=== PATIENT | female | born 1960 | race Hispanic/Latino ===

== ENCOUNTER 2017-12-29 20:16 | Emergency (ER) | payer BC ==
[2017-12-29] MEDS ORDERED: Ketorolac Tromethamine 30 MG/ML VIAL ONE (20:48)
[2017-12-29] MEDS ORDERED: Morphine 5 MG/ML SYRINGE ONE (21:18)
--- NOTE | 2017-12-29 21:18 | RAD ---
LUMBAR SPINE THREE VIEW 12/29/17 HISTORY: Pain. COMPARISON: None. FINDINGS: No fracture. No malalignment. Mild vascular calcifications of the aorta. Five nonribbearing lumbar ty pe vertebrae. Mild degenerative disease of the SI joints. IMPRESSION: 1. No acute fracture or malalignment. 2. Mild degenerative disc space height loss L5-S1. POS: [facility]
== END 2017-12-29 21:50 | disposition home or self-care (01) ==
LOC: SCSER 20:16
DX: M54.42 Lumbago with sciatica, left side (principal); E11.9 Type 2 diabetes mellitus without complications; E78.5 Hyperlipidemia, unspecified; I10 Essential (primary) hypertension
CPT/HCPCS: 72100; 96372; J2270; J1885

== ENCOUNTER 2018-07-14 15:29 | Outpatient (CLI) | payer BC | END 2018-07-14 15:30 | disposition home or self-care (01) | LOC: BICMAMMO 15:29 | PROVIDERS: ATTEND Family Medicine | DX: Z12.31 Encounter for screening mammogram for malignant neoplasm of breast (principal) | CPT/HCPCS: 77063; 77067 ==

== ENCOUNTER 2019-04-05 16:00 | Inpatient (IN) | payer BC ==
[2019-04-05 17:18] VITALS: BMI 29.5
[2019-04-19] MEDS ORDERED: cefOXitin 2 GM VIAL ONE (08:44)
[2019-04-19] MEDS ORDERED: Sodium Chloride 0.9% 100 ML ONE (08:44)
[2019-04-19] MEDS ORDERED: Midazolam HCl 2 mg/2 ml Vial ONE (09:09)
[2019-04-19] MEDS ORDERED: Fentanyl 100 MCG/2 ML VIAL ONE ×3 (09:09→13:07)
[2019-04-19] MEDS ORDERED: Ondansetron HCl/PF 4 MG/2 ML Vial IVP PRN (11:04)
[2019-04-19] MEDS ORDERED: Promethazine HCl 25 MG/ML VIAL IM PRN ×3 (11:04→18:01)
[2019-04-19] MEDS ORDERED: Promethazine HCl 25 MG/ML VIAL SLOW IVP PRN (11:04)
[2019-04-19] MEDS ORDERED: Ondansetron PF 4 MG/2 ML Vial IVP PRN ×2 (14:44→18:01)
[2019-04-19] MEDS ORDERED: hydrALAZINE 20 MG/ML VIAL SLOW IVP PRN (14:44)
[2019-04-19] MEDS ORDERED: Fentanyl 100 MCG/2 ML VIAL SLOW IVP PRN ×2 (14:44)
[2019-04-19] MEDS: Sodium Chloride 0.9% 1,000 ML IV SCH ×2 (15:30→17:21)
[2019-04-19] MEDS: Insulin Regular 300 UNITS/3 ML VIAL SC PRN ×2 (17:04→21:20)
[2019-04-19] MEDS ORDERED: Bupivacaine HCl 0.5%/Epinephrine 1:200,000/PF 30 ml Vial ONE (17:28)
[2019-04-19] MEDS: cefOXitin Sodium/Dextrose,Iso 1 GM in Premix Bag 1 BAG IVPB SCH (17:47)
[2019-04-19] MEDS ORDERED: Dexamethasone 20 MG/5 ML VIAL ONE (17:57)
[2019-04-19] MEDS ORDERED: Glycopyrrolate 0.2 MG/ML 5 ML SYRINGE ONE (17:57)
[2019-04-19] MEDS ORDERED: Ondansetron PF 4 MG/2 ML Vial ONE (17:57)
[2019-04-19] MEDS ORDERED: Ketorolac Tromethamine 30 MG/ML VIAL ONE (17:57)
[2019-04-19] MEDS ORDERED: Lidocaine 1% PF 5 ML VIAL ONE (17:57)
[2019-04-19] MEDS ORDERED: PROPOFOL 200 MG/20 ML VIAL ONE (17:57)
[2019-04-19] MEDS ORDERED: Rocuronium Bromide 10 MG/ML (10ML VIAL) ONE (17:57)
[2019-04-19] MEDS ORDERED: Acetaminophen 1,000 MG in Premix Bag 1 BAG IVPB SCH (18:00)
[2019-04-19] MEDS ORDERED: diphenhydrAMINE 50 MG/ML VIAL IVP PRN (18:01)
[2019-04-19] MEDS ORDERED: diphenhydrAMINE 50 MG/ML VIAL IM PRN (18:01)
[2019-04-19] MEDS ORDERED: diphenhydrAMINE 25 MG CAP PO PRN (18:01)
[2019-04-19] MEDS ORDERED: fentaNYL Citrate/PF 2,000 MCG in Sodium Chloride 0.9% 60 ML IV PRN (18:01)
[2019-04-19] MEDS ORDERED: Zolpidem Tartrate 5 MG TAB PO PRN (18:01)
[2019-04-19] MEDS ORDERED: Naloxone HCl 0.4 mg/ml Vial IV PRN (18:01)
[2019-04-19] MEDS ORDERED: Communication Order-Pharmacy FS SCH (18:15)
[2019-04-19] MEDS: Famotidine 20 MG TAB PO SCH (21:19)
[2019-04-19] MEDS: Enoxaparin Sodium 40 MG/0.4 ML SYRINGE SC SCH (21:19)
[2019-04-19] MEDS: Famotidine/PF 20 mg/2ml Vial SLOW IVP SCH (21:27)
[2019-04-19] MEDS: Acetaminophen 1,000 MG in Premix Bag 1 BAG IVPB SCH (21:32)
[2019-04-20] MEDS: cefOXitin Sodium/Dextrose,Iso 1 GM in Premix Bag 1 BAG IVPB SCH (01:32)
[2019-04-20] MEDS: Sodium Chloride 0.9% 1,000 ML IV SCH (02:44)
[2019-04-20] MEDS: Acetaminophen 1,000 MG in Premix Bag 1 BAG IVPB SCH ×2 (03:35→09:01)
[2019-04-20 06:30] LABS: #Lymphocytes 2.3 thou/uL (1.20-3.40); #Monocytes 0.9 thou/uL (0.11-0.59); #Neutrophils 10.2 thou/uL (1.40-6.50); %Basophils 0.2 % (0.0-1.0); %Monocytes 6.7 % (0.0-10.0); %Neutrophils 76.1 % (42.0-75.0); Hemoglobin 8.6 g/dL (12.0-16.0); Mean Corpuscular HGB CONC 33.2 g/dL (32.0-36.0); Mean Corpuscular Hemoglobin 29.7 pg (27.0-31.0); Mean Corpuscular Volume 89.5 fL (78.0-98.0); Mean Platelet Volume 7.5 fL (7.4-10.4); Platelet Count 204 thou/uL (130-400); RBC Distribution Width 11.8 % (11.5-14.5); Red Blood Cell (RBC) Count 2.89 mill/uL (4.20-5.40); White Blood Cell (WBC) Count 13.4 thou/uL (4.8-10.8)
[2019-04-20] MEDS: Insulin Regular 300 UNITS/3 ML VIAL SC PRN ×3 (06:42→16:24)
[2019-04-20 06:53] LABS: Anion Gap 10 mmol/L (10-20); BUN (Urea Nitrogen) 14 mg/dL (9.8-20.1); Calc. Creatinine Clearance 88 mL/min (70-130); Calcium 7.1 mg/dL (7.8-10.44); Carbon Dioxide 20 mmol/L (23-31); Chloride 105 mmol/L (98-107); Estimated GFR-MDRD 85; Glucose 166 mg/dL (80-115); Potassium 4.1 mmol/L (3.5-5.1); Sodium 131 mmol/L (136-145)
[2019-04-20] MEDS: Famotidine 20 MG TAB PO SCH ×2 (09:01→20:49)
[2019-04-20] MEDS: Famotidine/PF 20 mg/2ml Vial SLOW IVP SCH ×2 (09:02→20:51)
[2019-04-20] MEDS ORDERED: Fentanyl 100 MCG/2 ML VIAL SLOW IVP PRN (11:25)
[2019-04-20] MEDS ORDERED: Sodium Chloride 0.9% 1,000 ML IV SCH (11:26)
--- NOTE | 2019-04-20 11:28 | PDOC.GSPN ---
Surgery Progress Note: Subj - Subjective Patient reports: pain well controlled (No nausea) Surgery Progress Note: Obj - Vital signs Vital signs: Vital Signs - Most Recent Temp Pulse Resp BP Pulse Ox 98.3 F 92 16 92/60 94 L 04/20/19 10:58 04/20/19 10:58 04/20/19 10:58 04/20/19 10:58 04/20/19 10:58 - Physical Exam General: no distress Cardiovascular: regular rate and rhythm Respiratory: clear to auscultation Abdomen: soft, appropriately tender Wound: healing well Surgery Progress Note: Results - Labs Result Diagrams: 04/20/19 06:00 04/20/19 06:00 Lab results: Laboratory Results - last 24 hr 04/20/19 04/20/19 04/20/19 05:41 06:00 06:00 WBC 13.4 H RBC 2.89 L Hgb 8.6 L Hct 25.9 L MCV 89.5 MCH 29.7 MCHC 33.2 RDW 11.8 Plt Count 204 MPV 7.5 Neutrophils % 76.1 H Lymphocytes % 17.0 L Monocytes % 6.7 Eosinophils % 0.0 Basophils % 0.2 Neutrophils # 10.2 H Lymphocytes # 2.3 Monocytes # 0.9 H Eosinophils # 0.0 Basophils # 0.0 Sodium 131 L Potassium 4.1 Chloride 105 Carbon Dioxide 20 L Anion Gap 10 BUN 14 Creatinine 0.70 Estimated GFR (MDRD) 85 Glucose 166 H POC Glucose 184 H Calcium 7.1 L Surgery Progress Note: A/P - Problem (1) Colonic mass Current Visit: Yes Code(s): K63.89 - OTHER SPECIFIED DISEASES OF INTESTINE Status: Acute - Plan Plan: POD 1 right colectomy -encouraged ambulation. -Full liquids
[2019-04-20] MEDS: HYDROcodone/Acetaminophen 7.5/325 mg Tablet PO PRN ×2 (12:46→18:33)
[2019-04-20] MEDS: Enoxaparin Sodium 40 MG/0.4 ML SYRINGE SC SCH (20:49)
[2019-04-21] MEDS: HYDROcodone/Acetaminophen 7.5/325 mg Tablet PO PRN ×3 (00:38→12:44)
[2019-04-21] MEDS ORDERED: Sodium Chloride 0.9% 1,000 ML IV SCH (02:15)
[2019-04-21 03:17] LABS: Hemoglobin 7.7 g/dL (12.0-16.0); Platelet Count 183 thou/uL (130-400)
[2019-04-21 07:08] LABS: #Lymphocytes 3.6 thou/uL (1.20-3.40); #Monocytes 0.7 thou/uL (0.11-0.59); %Basophils 0.3 % (0.0-1.0); %Eosinophils 0.2 % (0.0-10.0); %Lymphocytes 26.8 % (21.0-51.0); %Monocytes 5.2 % (0.0-10.0); %Neutrophils 67.5 % (42.0-75.0); Hemoglobin 7.8 g/dL (12.0-16.0); Mean Corpuscular HGB CONC 33.1 g/dL (32.0-36.0); Mean Corpuscular Hemoglobin 29.7 pg (27.0-31.0); Mean Corpuscular Volume 89.6 fL (78.0-98.0); Mean Platelet Volume 7.6 fL (7.4-10.4); Platelet Count 189 thou/uL (130-400); RBC Distribution Width 12.1 % (11.5-14.5); Red Blood Cell (RBC) Count 2.62 mill/uL (4.20-5.40); White Blood Cell (WBC) Count 13.4 thou/uL (4.8-10.8)
--- NOTE | 2019-04-21 07:16 | PDOC.GSPN ---
Surgery Progress Note: Subj - Subjective Patient reports: positive flatus, still having pain Narrative: s/p R masoud-colectomy yesterday for colon mass. Had GEAR SHAPER post-op, which was discontinued yesterday. Reports doing well pain-mac yesterday, but woke up this am approx 0600 with 10/10 pain. Just received pain meds from the nurse. Reports bruising to L flank & states L flank area feels hot. Surgery Progress Note: Obj - Vital signs Vital signs: Vital Signs - Most Recent Temp Pulse Resp BP Pulse Ox 98.6 F 114 H 18 116/67 96 04/21/19 03:36 04/21/19 03:36 04/21/19 03:36 04/21/19 03:36 04/21/19 03:36 - Physical Exam General: well developed, well nourished, obese, other (Appears uncomfortable.) Cardiovascular: other (Mildly tachycardic, but regular rhythm. No m/r/g.) Respiratory: clear to auscultation, normal expansion, normal respiratory effort Abdomen: soft, appropriately tender, guarding, other (28x9 cm area of purple ecchymosis noted to L flank/abdomen. L flank area warmer to touch vs R flank.) Wound: healing well Surgery Progress Note: Results - Labs Result Diagrams: 04/21/19 06:42 04/20/19 06:00 Lab results: Laboratory Results - last 24 hr 04/20/19 04/21/19 04/21/19 22:40 02:53 02:53 WBC RBC Hgb 7.7 L Hct 23.3 L MCV MCH MCHC RDW Plt Count 183 MPV Neutrophils % Lymphocytes % Monocytes % Eosinophils % Basophils % Neutrophils # Lymphocytes # Monocytes # Eosinophils # Basophils # POC Glucose 153 H Blood Type O POSITIVE Antibody Screen NEGATIVE Crossmatch See Detail 04/21/19 04/21/19 04/21/19 03:52 06:42 07:00 WBC 13.4 H RBC 2.62 L Hgb 7.8 L Hct 23.5 L MCV 89.6 MCH 29.7 MCHC 33.1 RDW 12.1 Plt Count 189 MPV 7.6 Neutrophils % 67.5 Lymphocytes % 26.8 Monocytes % 5.2 Eosinophils % 0.2 Basophils % 0.3 Neutrophils # 9.0 H Lymphocytes # 3.6 H Monocytes # 0.7 H Eosinophils # 0.0 Basophils # 0.0 POC Glucose 142 H Blood Type O POSITIVE Antibody Screen Crossmatch Surgery Progress Note: A/P - Problem (1) H/O right hemicolectomy Current Visit: Yes Code(s): Z90.49 - ACQUIRED ABSENCE OF OTHER SPECIFIED PARTS OF DIGESTIVE TRACT Status: Acute - Plan Plan: s/p R hemicolectomy. Current pain 05/26, but just received pain medications. Will continue current pain medication regimen & reassess later today. Hgb decreased 0.8 points over past 24 hrs, but has remained stable since approx 0300 this am. Will continue to monitor. Addendum - Physician - Physician Attestation Date/Time: 04/21/19 0847 I personally performed or re-performed the physical examination and medical decision making. I have verified all student documentation or findings, including history, physical exam and/or medical decision making. Pain more controlled now. She is passing gas and feels better. Denies dizzyness with walking. Recheck Hgb at 3pm. Probably DC home if stable
[2019-04-21] MEDS: Famotidine/PF 20 mg/2ml Vial SLOW IVP SCH (08:49)
[2019-04-21] MEDS: Famotidine 20 MG TAB PO SCH (08:50)
--- NOTE | 2019-04-21 13:06 | OP ---
DATE OF PROCEDURE: 04/19/2019 PREOPERATIVE DIAGNOSIS: Right colon mass with high-grade dysplasia. POSTOPERATIVE DIAGNOSIS: Right colon mass with high-grade dysplasia. PROCEDURE PERFORMED: Laparoscopic hand-assist right colectomy with isoperistaltic anastomosis. ANESTHESIA: General. ESTIMATED BLOOD LOSS: 100 mL. COMPLICATIONS: None. FINDINGS: The specimen was opened on the back table to reveal the polyp to be in the specimen. TECHNIQUE: The patient underwent preop placement of TAP blocks, was taken to the operating room, laid supine on operating room table. After general anesthetic was obtained, a Panchal was placed. The abdomen was shaved, prepped, and draped in a sterile fashion. Left subcostal 5 mm Optiview trocar was placed in the usual fashion and high-flow pneumoperitoneum was obtained. A suprapubic 5 mm port and a left abdominal 5 mm port were all placed under direct visualization. The tattooed segment can be seen at hepatic flexure. A 5 mm incision was made around and above the umbilicus and the hand-assist port was placed. The colon was mobilized along the white line of Toldt using cautery. The right ureter was found and excluded from the dissection. Hepatic flexure was mobilized using cautery and the laparoscopic LigaSure. The base of the ileocolic artery was skeletonized. The greater omentum was taken off the transverse colon past the level of the tattoo. The hand-assist top was removed allowing the right colon, transverse colon brought up under no tension. Jennifer clamp and silk ties used to take the ileocolic blood vessel near its base. The proximal transverse colon vessels were taken in the same way. The small bowel was able to brought up against the transverse colon in isoperistaltic fashion under no tension. Enterotomy was made on the end of the small bowel and more distal on the colon. A ggvt-dh-denl anastomosis was performed using a stapling device. The common enterotomy was closed using a running 2-0 Vicryl in two layers. Crotch stitch was placed using silk suture. The mesenteric defect was closed using silk suture. There was no ongoing bleeding in the abdomen. The upper abdomen was irrigated using sterile solution. All instrument counts, needle counts and lap counts were correct. All ports were removed. The midline fascia was closed using #1 PDS from the top and the bottom and tied in the middle. Subcutaneous tissues were irrigated and closed using 3-0 Vicryl, 4-0 Monocryl, and Dermabond. The patient was sent to Recovery in stable condition. All instrument counts, needle counts, and lap counts were correct. Job ID: [id number]
[2019-04-21 15:05] VITALS: BP 111/73; TEMP 98.2
[2019-04-21 15:39] LABS: Hemoglobin 7.4 g/dL (12.0-16.0)
--- NOTE | 2019-04-22 05:52 | DIS ---
DATE OF ADMISSION: 04/19/2019 DATE OF DISCHARGE: 04/21/2019 ADMISSION DIAGNOSIS: Colon mass. DISCHARGE DIAGNOSIS: Colon mass. PROCEDURE PERFORMED: Laparoscopic hand assisted right colectomy by Cezar without complication. CONDITION ON DISCHARGE: Improved. STAFF: Bao Robb MD HOSPITAL COURSE: The patient's postop course was complicated by trocar site hematoma on the left. She did have a drop of her hemoglobin into the mid 7s. She had mild tachycardia associated with this, but no dizziness. She was up and ambulating and had normal vital signs. On the afternoon of 04/21/2019, she is tolerating full liquids without difficulty. She is passing gas. She is being discharged home. Fabiola sent to [facility] in [place]. Job ID: [id number]
--- NOTE | 2019-04-23 02:12 | PQF ---
[employer] Crystal Reports BRENNA Dimas JUVENCIO RODRIGUEZ MD [id number] [facility] A- [id number] CLINICAL DOCUMENTATION CLARIFICATION FORM: POST DISCHARGE Addendum to original discharge summary date: ____ Late entry note date: __ DATE: 04/23/2019 ATTN: JUVENCIO RODRIGUEZ MD Please exercise your independent, professional judgment in responding to the clarification form. Clinical indicators are provided on the bottom of this form for your review Please check appropriate box(s): [ X] Hyponatremia [ ] Abnormal lab findings [ ] Other diagnosis [ ] Unable to determine In addition, please specify: Present on Admission (POA): [ X ] Yes [ ] No [ ] Unable to determine CLINICAL INDICATORS - SIGNS / SYMPTOMS / LABS -Sodium :131L- Laboratory report, 04/20 -Mild tachycardia-DS, 04/21, JUVENCIO RODRIGUEZ MD RISK FACTORS -Colon mass- DS, 04/21, JUVENCIO RODRIGUEZ MD -Laparoscopic hand assisted right colectomy-DS, 04/21, JUVENCIO RODRIGUEZ MD TREATMENTS: -Sodium chloride.IV-MAR, 04/21 (This form is maintained as a part of the permanent medical record) 2014 [employer]. All Rights Reserved Rachelle Abel [not provided] [not provided] MTDD
== END 2019-04-21 18:10 | disposition home or self-care (01) | DRG 330 ==
LOC: SURG A 04-19 08:03
PROVIDERS: ADMIT Surgery; ATTEND Surgery
PROC: 0DTF0ZZ Resection of Right Large Intestine, Open Approach (ICD-10-PCS; principal; 2019-04-19)
PROC: 0DJU4ZZ Inspection of Omentum, Percutaneous Endoscopic Approach (ICD-10-PCS; 2019-04-19)
DX: K63.5 Polyp of colon (principal); K91.870 Postprocedural hematoma of a digestive system organ or structure following a digestive system procedure; E87.1 Hypo-osmolality and hyponatremia; K63.9 Disease of intestine, unspecified; R00.0 Tachycardia, unspecified; E78.5 Hyperlipidemia, unspecified; I10 Essential (primary) hypertension; K59.00 Constipation, unspecified; E11.319 Type 2 diabetes mellitus with unspecified diabetic retinopathy without macular edema; Y83.9 Surgical procedure, unspecified as the cause of abnormal reaction of the patient, or of later complication, without mention of misadventure at the time of the procedure; Y73.3 Surgical instruments, materials and gastroenterology and urology devices (including sutures) associated with adverse incidents; Z79.4 Long term (current) use of insulin; Z90.710 Acquired absence of both cervix and uterus
CPT/HCPCS: 36415; 36416; 80048; 85014; 85018; 85025; 85049; 86850; 86900; 86901; 88307; J0131; J0670; J0694; J1100; J1650; J1815; J1885; J2001; J2250; J2405; J2704; J3010; J3490

== ENCOUNTER 2019-04-05 16:38 | Outpatient (CLI) | payer BC ==
[2019-04-05 17:21] LABS: #Basophils 0.1 thou/uL (0.0-0.2); #Eosinphils 0.3 thou/uL (0.0-0.7); #Lymphocytes 3.3 thou/uL (1.20-3.40); #Monocytes 0.5 thou/uL (0.11-0.59); #Neutrophils 5.5 thou/uL (1.40-6.50); %Basophils 1.1 % (0.0-1.0); %Eosinophils 3.6 % (0.0-10.0); %Monocytes 4.7 % (0.0-10.0); %Neutrophils 56.6 % (42.0-75.0); Hemoglobin 14.3 g/dL (12.0-16.0); Mean Corpuscular HGB CONC 34.2 g/dL (32.0-36.0); Mean Corpuscular Hemoglobin 29.9 pg (27.0-31.0); Mean Corpuscular Volume 87.4 fL (78.0-98.0); Mean Platelet Volume 7.5 fL (7.4-10.4); Platelet Count 259 thou/uL (130-400); RBC Distribution Width 11.8 % (11.5-14.5); Red Blood Cell (RBC) Count 4.79 mill/uL (4.20-5.40); White Blood Cell (WBC) Count 9.7 thou/uL (4.8-10.8)
[2019-04-05 17:45] LABS: Anion Gap 15 mmol/L (10-20); BUN (Urea Nitrogen) 15 mg/dL (9.8-20.1); Calc. Creatinine Clearance 0 mL/min (70-130); Calcium 9.8 mg/dL (7.8-10.44); Carbon Dioxide 25 mmol/L (23-31); Chloride 101 mmol/L (98-107); Estimated GFR-MDRD 81; Glucose 176 mg/dL (80-115); Hemoglobin A1c 9.5 % (4.0-6.0); Potassium 3.6 mmol/L (3.5-5.1); Sodium 137 mmol/L (136-145)
== END 2019-04-05 16:39 | disposition home or self-care (01) ==
LOC: LABBT 16:38
PROVIDERS: ATTEND Surgery
DX: Z01.818 Encounter for other preprocedural examination (principal); K63.5 Polyp of colon
CPT/HCPCS: 80048; 83036; 85025; 93005; 93010

== ENCOUNTER 2019-08-05 11:05 | Outpatient (CLI) | payer BC ==
--- NOTE | 2019-08-05 13:40 | MMO ---
Bilateral MAMMO Bilat Screen [facility]. CLINICAL HISTORY: Patient is 59 years old and is seen for screening. The patient has no family history of breast cancer. The patient has no personal history of cancer. VIEWS: The views performed were: bilateral craniocaudal with tomosynthesis and bilateral mediolateral oblique with tomosynthesis. FILMS COMPARED: The present examination has been compared to prior imaging studies performed at [facility] on 03/08/2014, 02/19/2017 and 07/14/2018. This study has been interpreted with the assistance of computer-aided detection. MAMMOGRAM FINDINGS: There are scattered fibroglandular densities. Finding 1: There are stable benign appearing calcifications seen in both breasts. Finding 2: There is a stable focal asymmetry seen in the upper region of the left breast. There are no suspicious masses, suspicious calcifications, or new areas of architectural distortion. IMPRESSION: THERE IS NO MAMMOGRAPHIC EVIDENCE OF MALIGNANCY. A ROUTINE FOLLOW-UP MAMMOGRAM IN 1 YEAR IS RECOMMENDED. THE RESULTS OF THIS EXAM WERE SENT TO THE PATIENT. ACR BI-RADS Category 2 - Benign finding MAMMOGRAPHY NOTE: 1. A negative mammogram report should not delay a biopsy if a dominant of clinically suspicious mass is present. 2. Approximately 10% to 15% of breast cancers are not detected by mammography. 3. Adenosis and dense breasts may obscure an underlying neoplasm. Reported by: BK LOPEZ MD Electonically Signed: [id number]
== END 2019-08-05 11:06 | disposition home or self-care (01) ==
LOC: BICMAMMO 11:05
PROVIDERS: ATTEND Family Medicine
DX: Z12.31 Encounter for screening mammogram for malignant neoplasm of breast (principal)
CPT/HCPCS: 77063; 77067

== ENCOUNTER 2021-01-22 13:36 | Outpatient (CLI) | payer BC | END 2021-01-22 13:37 | disposition home or self-care (01) | LOC: BICMAMMO 13:36 | PROVIDERS: ATTEND Family Medicine | DX: Z12.31 Encounter for screening mammogram for malignant neoplasm of breast (principal); Z13.820 Encounter for screening for osteoporosis; Z78.0 Asymptomatic menopausal state; M85.89 Other specified disorders of bone density and structure, multiple sites | CPT/HCPCS: 77063; 77067; 77080 ==

== ENCOUNTER 2022-01-28 09:01 | Outpatient (CLI) | payer BC | END 2022-01-28 09:02 | disposition home or self-care (01) | LOC: BICMAMMO 09:01 | PROVIDERS: ATTEND Family Medicine | DX: Z12.31 Encounter for screening mammogram for malignant neoplasm of breast (principal) | CPT/HCPCS: 77063; 77067 ==